=== PATIENT | female | born 1950 | race Caucasian/White ===

== ENCOUNTER 2022-01-18 10:16 | Outpatient (CLI) | payer MEDICARE, OTHER ==
[2022-01-18 11:31] LABS: Anion Gap 16 mmol/L (10-20); BUN (Urea Nitrogen) 14 mg/dL (9.8-20.1); Calc. Creatinine Clearance 0 mL/min (70-130); Calcium 9.3 mg/dL (7.8-10.44); Carbon Dioxide 23 mmol/L (23-31); Chloride 106 mmol/L (98-107); Glucose 144 mg/dL (83-110); Potassium 3.5 mmol/L (3.5-5.1); Sodium 141 mmol/L (136-145)
== END 2022-01-18 10:17 | disposition home or self-care (01) ==
LOC: LABBT 10:16
PROVIDERS: ATTEND Neurological Surgery
DX: Z01.818 Encounter for other preprocedural examination (principal); G56.02 Carpal tunnel syndrome, left upper limb; Z20.822 Contact with and (suspected) exposure to COVID-19
CPT/HCPCS: 80048; U0003; U0005

== ENCOUNTER 2022-01-22 05:59 | Day surgery (SDC) | payer MEDICARE ==
[2022-01-19 10:08] VITALS: BMI 33.0
[2022-01-22] MEDS ORDERED: fentaNYL Citrate/PF 100 MCG/2 ML SYRINGE ONE (06:18)
[2022-01-22] MEDS ORDERED: Propofol 500 MG/50 ML VIAL ONE (06:19)
[2022-01-22] MEDS ORDERED: Xylocaine 1% w/ Epi 1:100K 10 ML VIAL ONE (06:45)
[2022-01-22] MEDS ORDERED: CEFAZOLIN 2 GM VIAL ONE (06:57)
[2022-01-22] MEDS ORDERED: Sodium Chloride 0.9% 100 ML ONE (06:57)
[2022-01-22] MEDS ORDERED: Lidocaine 1% PF 5 ML VIAL ONE (07:03)
[2022-01-22] MEDS ORDERED: PROPOFOL 200 MG/20 ML VIAL ONE (07:03)
[2022-01-22] MEDS ORDERED: Ondansetron PF 4 MG/2 ML Vial ONE (07:03)
[2022-01-22] MEDS ORDERED: Ketorolac Tromethamine 30 MG/ML VIAL ONE (07:03)
[2022-01-22] MEDS ORDERED: ePHEDrine 50 MG/ML VIAL ONE (07:03)
[2022-01-22] MEDS ORDERED: Metoclopramide HCl 10 MG/2 ML VIAL ONE (07:03)
== END 2022-01-22 09:20 | disposition home or self-care (01) ==
LOC: SDC 05:59
PROVIDERS: ATTEND Neurological Surgery
PROC: 01N50ZZ Release Median Nerve, Open Approach (ICD-10-PCS; principal; 2022-01-22)
DX: G56.02 Carpal tunnel syndrome, left upper limb (principal); E78.5 Hyperlipidemia, unspecified; E11.9 Type 2 diabetes mellitus without complications; M19.90 Unspecified osteoarthritis, unspecified site; I10 Essential (primary) hypertension; E03.9 Hypothyroidism, unspecified; Z87.891 Personal history of nicotine dependence; Z79.4 Long term (current) use of insulin; Z79.84 Long term (current) use of oral hypoglycemic drugs; Z79.890 Hormone replacement therapy; Z79.899 Other long term (current) drug therapy
CPT/HCPCS: J2704; J3490